=== PATIENT | male | born 1975 | race African-American/Black ===

== ENCOUNTER 2016-11-17 10:09 | Emergency (ER) | payer BC ==
[2016-11-17 09:42] LABS: URINE SOURCE CLEAN CATCH
[2016-11-17 09:50] LABS: URINE APPEARANCE CLEAR; URINE BILIRUBIN NEG (NEG); URINE BLOOD NEG (NEG); URINE COLOR YELLOW; URINE GLUCOSE NEG (NEG); URINE KETONE NEG (NEG); URINE LEUKOCYTE ESTERASE NEG (NEG); URINE NITRATE NEG (NEG); URINE PROTEIN NEG (NEG); URINE SPECIFIC GRAVITY 1.021 (1.003-1.035); URINE UROBILINOGEN 0.2 MG/DL (NEG)
[2016-11-17 09:56] LABS: CULTURE INDICATED? NO
[~2016-11-17 10:09] MED LIST: CEFTRIAXON2 G/PIGGYB IV; ULTRAM PO
[2016-11-22 03:45] LABS: CHLAMYDIA TRACH Not Detected (Not Detected); N GONOR Not Detected (Not Detected)
== END 2016-11-17 11:11 | disposition home or self-care (01) ==
LOC: CFTX 10:09
PROVIDERS: Emergency Medicine
DX: R36.9 Urethral discharge, unspecified (principal); K21.9 Gastro-esophageal reflux disease without esophagitis; I10 Essential (primary) hypertension; Z87.891 Personal history of nicotine dependence
CPT/HCPCS: 81003; 87491; 87591; 96372; 99283; J0696